=== PATIENT | male | born 1945 | race Caucasian/White ===

== ENCOUNTER 2023-06-14 04:31 | Inpatient (IN) | payer OTHER ==
[2023-06-14 05:03] VITALS: BMI 29.7
[2023-06-14] MEDS ORDERED: Ondansetron PF 4 MG/2 ML Vial IVP PRN (05:04)
[2023-06-14] MEDS ORDERED: Acetaminophen 650 MG Suppository PR PRN (05:04)
[2023-06-14] MEDS ORDERED: Acetaminophen 325 MG TAB PO PRN (05:04)
[2023-06-14] MEDS ORDERED: Ondansetron ODT 4 MG TAB PO PRN (05:04)
[2023-06-14] MEDS: Sodium Chloride 0.9% 1,000 ML IV SCH (05:35)
[2023-06-14 08:01] LABS: #Neutrophils 8.3 thou/uL (1.40-6.50); %Basophils 0.3 % (0.0-1.0); %Eosinophils 0.2 % (0.0-10.0); %Lymphocytes 12.1 % (21.0-51.0); %Monocytes 9.1 % (0.0-10.0); %Neutrophils 77.9 % (42.0-75.0); Hematocrit 36.5 % (42.0-52.0); Hemoglobin 11.7 g/dL (14.0-18.0); Mean Corpuscular HGB CONC 32.1 g/dL (32.0-36.0); Mean Corpuscular Hemoglobin 29.1 pg (27.0-31.0); Mean Corpuscular Volume 90.8 fl (78.0-98.0); Platelet Count 210 10x3/uL (130-400); Red Blood Cell (RBC) Count 4.02 mill/uL (4.70-6.10); White Blood Cell (WBC) Count 10.6 10x3/uL (4.8-10.8)
[2023-06-14 08:22] LABS: Anion Gap 11 mmol/L (10-20); BUN (Urea Nitrogen) 14 mg/dL (8.4-25.7); Calc. Creatinine Clearance 79 mL/min (70-130); Calcium 9.1 mg/dL (7.8-10.44); Carbon Dioxide 20 mmol/L (23-31); Chloride 111 mmol/L (98-107); Estimated GFR 77; Glucose 220 mg/dL (83-110); Potassium 4.3 mmol/L (3.5-5.1); Sodium 138 mmol/L (136-145)
[2023-06-14] MEDS ORDERED: Dextrose 5% in Water 1,000 ML IV PRN (11:48)
[2023-06-14] MEDS ORDERED: Dextrose 50% Abboject 50 ML SYRINGE SLOW IVP PRN (11:48)
[2023-06-14] MEDS ORDERED: Glucagon 1 MG/ML KIT IM PRN (11:48)
[2023-06-14] MEDS: HumaLOG 300 UNITS/3 ML VIAL SC PRN (12:57)
[2023-06-14] MEDS: Calcium Carbonate 500 MG ChewTAB PO PRN (17:51)
[2023-06-14] MEDS: cefTRIAXone\\ROCEPHIN 2 GM in Sodium Chloride 0.9% 100 ML IVPB SCH (21:28)
[2023-06-14] MEDS: Terazosin HCl 5 MG CAP PO SCH (21:29)
[2023-06-14] MEDS: Atorvastatin Calcium 40 MG TAB PO SCH (21:29)
[2023-06-14] MEDS: Tamsulosin HCl 0.4 MG CAP PO SCH (21:29)
[2023-06-14] MEDS: Insulin NPH Human Isophane 100 UNITS/ML (10 ML VIAL) SQ SCH (21:31)
[2023-06-15 06:29] LABS: #Eosinphils 0.1 thou/uL (0.0-0.7); #Monocytes 0.8 thou/uL (0.11-0.59); #Neutrophils 4.2 thou/uL (1.40-6.50); %Basophils 0.5 % (0.0-1.0); %Eosinophils 1.4 % (0.0-10.0); %Lymphocytes 19.3 % (21.0-51.0); %Monocytes 12.9 % (0.0-10.0); %Neutrophils 65.4 % (42.0-75.0); Hematocrit 35.2 % (42.0-52.0); Hemoglobin 11.4 g/dL (14.0-18.0); Mean Corpuscular HGB CONC 32.4 g/dL (32.0-36.0); Mean Corpuscular Hemoglobin 28.7 pg (27.0-31.0); Mean Corpuscular Volume 88.7 fl (78.0-98.0); Mean Platelet Volume 10.2 fL (7.4-10.4); Platelet Count 204 10x3/uL (130-400); RBC Distribution Width 13.9 % (11.5-14.5); Red Blood Cell (RBC) Count 3.97 mill/uL (4.70-6.10); White Blood Cell (WBC) Count 6.4 10x3/uL (4.8-10.8)
[2023-06-15 06:39] LABS: Hemoglobin A1c 8.1 % (4.0-6.0)
[2023-06-15 06:45] LABS: Anion Gap 10 mmol/L (10-20); BUN (Urea Nitrogen) 10 mg/dL (8.4-25.7); Calc. Creatinine Clearance 94 mL/min (70-130); Carbon Dioxide 19 mmol/L (23-31); Chloride 109 mmol/L (98-107); Estimated GFR 89; Glucose 198 mg/dL (83-110); Potassium 3.9 mmol/L (3.5-5.1); Sodium 134 mmol/L (136-145)
[2023-06-15] MEDS: Lisinopril 2.5 MG TAB PO SCH (09:55)
[2023-06-15] MEDS: Aspirin 81 mg Enteric Coated Tablet PO SCH (09:55)
[2023-06-15] MEDS: DULoxetine 30 MG CAP PO SCH (09:55)
[2023-06-15] MEDS: Insulin NPH Human Isophane 100 UNITS/ML (10 ML VIAL) SC SCH (10:11)
[2023-06-15] MEDS: Lidocaine 2% Viscous Solution 10 ML, Aluminum & Magnesium Hydroxide 30 ML SSW SCH (13:54)
[2023-06-16] MEDS: Amoxicillin/Potassium Clav 875 MG TAB PO SCH (08:24)
[2023-06-16 12:26] VITALS: BP 120/75; TEMP 99.3
[2023-06-16] MEDS: Lactulose 20 GM (30 mL) UDCUP PO SCH (12:26)
== END 2023-06-16 19:15 | DRG 872 ==
LOC: INTOOBSV 04:31 → T4-A 04:31 → EEVIPCON 04:31 → OBSVTOIN 11:48
PROVIDERS: ADMIT Student in an Organized Health Care Education/Training Program; ATTEND Internal Medicine
DX: A41.9 Sepsis, unspecified organism (principal); E11.9 Type 2 diabetes mellitus without complications; I10 Essential (primary) hypertension; E03.9 Hypothyroidism, unspecified; N40.0 Benign prostatic hyperplasia without lower urinary tract symptoms; I25.2 Old myocardial infarction; Z79.4 Long term (current) use of insulin; Z79.84 Long term (current) use of oral hypoglycemic drugs; Z79.82 Long term (current) use of aspirin; Z79.899 Other long term (current) drug therapy; Z11.52 Encounter for screening for COVID-19
CPT/HCPCS: 36415; 36416; 80048; 83036; 85025; 87040; G0378; J0696; J1815; J3490; J7050